=== PATIENT | female | born 1950 | race Caucasian/White ===

== ENCOUNTER 2022-10-05 19:58 | Emergency (ER) | payer MEDICARE, OTHER ==
[~2022-10-05] VITALS: Ht 162.5 cm; Wt 85.0 kg
[~2022-10-05 19:58] MED LIST: CARDIZEM; CLON0.5T4; CYMBALTA; DILT30TA; DULO30CA49; DULO60CA59; LISI10TA25; LOSA50TA63; LOSARTAN; MELO15TA39; MELOXICAM; METF-399; METFORMIN; TIZA-186
[2022-10-05 20:21] LABS: BASOPHILS # (AUTO) 0.1 10^3/uL (0.0-0.1); BASOPHILS % (AUTO) 1 % (0-10); EOSINOPHILS # (AUTO) 0.1 10^3/uL (0.0-0.3); EOSINOPHILS % (AUTO) 1 % (0-10); HEMATOCRIT 38 % (35-52); HEMOGLOBIN 12.4 g/dL (11.5-16.0); LYMPHOCYTES # (AUTO) 4.2 10^3/uL (1.0-4.0); LYMPHOCYTES % (AUTO) 43 % (12-44); MEAN CORPUSCULAR HEMOGLOBIN 30 pg (25-34); MEAN CORPUSCULAR HGB CONC 33 g/dL (32-36); MEAN CORPUSCULAR VOLUME 91 fL (80-99); MEAN PLATELET VOLUME 9.4 fL (9.0-12.2); MONOCYTES # (AUTO) 0.7 10^3/uL (0.0-1.0); MONOCYTES % (AUTO) 7 % (0-12); NEUTROPHILS # (AUTO) 4.8 10^3/uL (1.8-7.8); NEUTROPHILS % (AUTO) 49 % (42-75); PLATELET COUNT 286 10^3/uL (130-400); WHITE BLOOD COUNT 9.8 10^3/uL (4.3-11.0)
--- NOTE | 2022-10-05 20:35 | ED General ---
General Chief Complaint: Abdominal/GI Problems Stated Complaint: HIGH BLOOD SUGER| Source of Information: Patient, EMS, Family History of Present Illness Date Seen by Provider: Oct 05, 2022 Time Seen by Provider: 19:58 Initial Comments 72-year-old female presenting by EMS from [facility]. She had not been feeling well when she went to dinner and after eating some her blood sugar was up so she had given herself some insulin. Then she started feeling sick to her stomach and told her family she had to leave. When she got outside the restaurant she threw up. She was still feeling nauseated after Zofran 4 mg IV by EMS. She reports having history of quadruple bypass, stroke, heart attack. She has poorly controlled diabetes. She states that she has had episodes like this in the past and usually was stress related. She has had some burning discomfort with urination. She denies having a headache, chest pain, abdominal pain, diarrhea, new numbness or weakness. Timing/Duration: 1 Hour Severity: Moderate Modifying Factors: worse with Movement Associated Systoms: No Chest Pain, No Cough, No Diaphoresis, No Fever/Chills, No Headaches, No Loss of Appetite; Malaise, Nausea/Vomiting; No Rash, No Seizure, No Shortness of Air, No Syncope, No Weakness Allergies and Home Medications Allergies Coded Allergies: codeine (Verified Allergy, Unknown, nausea and vomiting, 01/06/16) prednisone (Verified Allergy, Unknown, 01/06/16) Patient Home Medication List Home Medication List Reviewed: Yes Cephalexin (Cephalexin) 500 Mg Capsule, 500 MG PO TID Prescribed by: YOANNA HALLMAN on 10/05/22 4728 Clonazepam (Clonazepam) 0.5 Mg Tablet, (Reported) Entered as Reported by: WILDER FELIPE on 01/07/16118 Diltiazem HCl (Diltiazem HCl) 30 Mg Tablet, (Reported) Entered as Reported by: WILDER FELIPE on 01/07/16118 Duloxetine HCl (Duloxetine HCl) 60 Mg Capsule.dr (Reported) Entered as Reported by: WILDER FELIPE on 01/07/16118 Duloxetine HCl (Duloxetine HCl) 30 Mg Capsule.dr (Reported) Entered as Reported by: WILDER FELIPE on 01/07/16118 Lisinopril (Lisinopril) 10 Mg Tablet, (Reported) Entered as Reported by: WILDER FELIPE on 01/07/16118 Losartan Potassium (Losartan Potassium) 50 Mg Tablet, (Reported) Entered as Reported by: WILDER FELIPE on 01/07/16118 Meloxicam (Meloxicam) 15 Mg Tablet, (Reported) Entered as Reported by: WILDER FELIPE on 01/07/16118 Metformin HCl (Metformin HCl) 1,000 Mg Tablet, (Reported) Entered as Reported by: WILDER FELIPE on 01/07/16118 Tizanidine HCl (Tizanidine HCl) 4 Mg Tablet, (Reported) Entered as Reported by: WILDER FELIPE on 01/07/16118 Review of Systems Review of Systems Constitutional: No chills, No dizziness, No fever; malaise EENTM: no symptoms reported Respiratory: no symptoms reported Cardiovascular: No chest pain Gastrointestinal: see HPI, nausea, vomiting Genitourinary: dysuria Musculoskeletal: no symptoms reported Skin: no symptoms reported Psychiatric/Neurological: Anxiety; Denies Headache Past Joaedjz-Qvotsv-Fchges Hx Patient Social History Tobacco Use?: No Use of E-Cig and/or Vaping dev: No Substance use?: No Immunizations Up To Date Tetanus Booster (TDap): Unknown PED Vaccines UTD: Yes Seasonal Allergies Seasonal Allergies: Yes (COMPLAINS OF ITCHYNESS ) Past Medical History Surgery/Hospitalization HX: Poorly controlled diabetes insulin-dependent, coronary artery disease, hypertension, stroke, CABG Surgeries: Yes Gallbladder, Hysterectomy Sleep Apnea Currently Using CPAP: Yes Currently Using BIPAP: No Hypertension Reproductive Disorders: No Female Reproductive Disorders: Ovarian Cyst Sexually Transmitted Disease: No Gastroesophageal Reflux Osteoporosis, Fibromyalgia, Rheumatoid Arthritis, Back Injury Diabetes, Non-Insulin dep Loss of Vision: Denies Hearing Impairment: Denies Anxiety, Depression Adverse Reaction/Blood Tranf: No Family Medical History Patient reports no known family medical history. Physical Exam Vital Signs Vital Signs - First Documented 10/05/22 20:08 Temp 36.5 Pulse 80 Resp 20 B/P (MAP) 161/80 (107) Pulse Ox 96 O2 Delivery Room Air Capillary Refill : Height, Weight, BMI Height: 5'4.00" Weight: 182lbs. 6.5oz. [id number]; 31.3 BMI Method:Stated General Appearance: No Apparent Distress, WD/WN HEENT: Pharynx Normal Neck: Full Range of Motion, Normal Inspection, Non Tender, Supple Respiratory: Chest Non Tender, Lungs Clear, Normal Breath Sounds, No Accessory Muscle Use, No Respiratory Distress Cardiovascular: Regular Rate, Rhythm, Normal Peripheral Pulses Gastrointestinal: Normal Bowel Sounds, No Pulsatile Mass, Non Tender, Soft Rectal: Deferred Extremity: Normal Capillary Refill, Normal Inspection, No Pedal Edema Neurologic/Psychiatric: Alert, Oriented x3, No Motor/Sensory Deficits, Normal Mood/Affect, auto body repairman II-XII Norm as Tested Skin: Normal Color, Warm/Dry Progress/Results/Core Measures Suspected Sepsis SIRS Temperature: Pulse: Respiratory Rate: Laboratory Tests 10/05/22 20:12: White Blood Count 9.8 Blood Pressure / Mean: Laboratory Tests 10/05/22 20:12: Creatinine 1.10, INR Comment 1.7H, Platelet Count 286, Total Bilirubin 0.3 Results/Orders Lab Results Laboratory Tests Test 10/05/22 20:12 10/05/22 22:25 10/05/22 22:45 10/05/22 23:48 Range/Units White Blood Count 9.8 4.3-11.0 10^3/uL Red Blood Count 4.19 3.80-5.11 10^6/uL Hemoglobin 12.4 11.5-16.0 g/dL Hematocrit 38 35-52 % Mean Corpuscular Volume 91 80-99 fL Mean Corpuscular Hemoglobin 30 25-34 pg Mean Corpuscular Hemoglobin Concent 33 32-36 g/dL Red Cell Distribution Width 13.1 10.0-14.5 % Platelet Count 286 130-400 10^3/uL Mean Platelet Volume 9.4 9.0-12.2 fL Immature Granulocyte % (Auto) 0 % Neutrophils (%) (Auto) 49 42-75 % Lymphocytes (%) (Auto) 43 12-44 % Monocytes (%) (Auto) 7 0-12 % Eosinophils (%) (Auto) 1 0-10 % Basophils (%) (Auto) 1 0-10 % Neutrophils # (Auto) 4.8 1.8-7.8 10^3/uL Lymphocytes # (Auto) 4.2 H 1.0-4.0 10^3/uL Monocytes # (Auto) 0.7 0.0-1.0 10^3/uL Eosinophils # (Auto) 0.1 0.0-0.3 10^3/uL Basophils # (Auto) 0.1 0.0-0.1 10^3/uL Immature Granulocyte # (Auto) 0.0 0.0-0.1 10^3/uL Prothrombin Time 20.0 H 12.2-14.7 SEC INR Comment 1.7 H 0.8-1.4 Activated Partial Thromboplast Time 29 24-35 SEC Sodium Level 140 135-145 MMOL/L Potassium Level 4.3 3.6-5.0 MMOL/L Chloride Level 102 98-107 MMOL/L Carbon Dioxide Level 24 21-32 MMOL/L Anion Gap 14 5-14 MMOL/L Blood Urea Nitrogen 21 H 7-18 MG/DL Creatinine 1.10 0.60-1.30 MG/DL Estimat Glomerular Filtration Rate 54 BUN/Creatinine Ratio 19 Glucose Level 172 H 70-105 MG/DL Glucometer 153 H 127 H 70-110 MG/DL Calcium Level 9.2 8.5-10.1 MG/DL Corrected Calcium 9.3 8.5-10.1 MG/DL Magnesium Level 2.1 1.6-2.4 MG/DL Total Bilirubin 0.3 0.1-1.0 MG/DL Aspartate Amino Transf (AST/SGOT) 29 5-34 U/L Alanine Aminotransferase (ALT/SGPT) 22 0-55 U/L Alkaline Phosphatase 136 40-136 U/L Troponin I < 0.30 < 0.30 <0.30 NG/ML Pro-B-Type Natriuretic Peptide 396.5 H <125.0 PG/ML Total Protein 7.2 6.4-8.2 GM/DL Albumin 3.9 3.2-4.5 GM/DL Lipase 38 8-78 U/L Urine Color YELLOW Urine Clarity CLOUDY Urine pH 6.0 5-9 Urine Specific [place] 1.020 1.016-1.022 Urine Protein NEGATIVE NEGATIVE Urine Glucose (UA) NEGATIVE NEGATIVE Urine Ketones NEGATIVE NEGATIVE Urine Nitrite NEGATIVE NEGATIVE Urine Bilirubin NEGATIVE NEGATIVE Urine Urobilinogen 1.0 < = 1.0 MG/DL Urine Leukocyte Esterase 1+ H NEGATIVE Urine RBC (Auto) NEGATIVE NEGATIVE Urine RBC NONE /HPF Urine WBC >100 H /HPF Urine Squamous Epithelial Cells 25-50 H /HPF Urine Crystals NONE /LPF Urine Bacteria MODERATE H /HPF Urine Casts NONE /LPF Urine Mucus NEGATIVE /LPF Urine Culture Indicated NO My Orders Orders - YOANNA HALLMAN MD Cbc With Automated Diff (10/05/22 20:17) Magnesium (10/05/22 20:17) Chest 1 View Ap/Pa Only (10/05/22 20:17) Ekg Tracing (10/05/22 20:17) Comprehensive Metabolic Panel (10/05/22 20:17) Protime With Inr (10/05/22 20:17) Partial Thromboplastin Time (10/05/22 20:17) O2 (10/05/22 20:17) Monitor-Rhythm Ecg Trace Only (10/05/22 20:17) Ed Iv/Invasive Line Start (10/05/22 20:17) Lipase (10/05/22 20:17) Troponin I Fs (10/05/22 20:17) Probnp Fs (10/05/22 20:17) Ct Head Wo (10/05/22 20:17) Ua Culture If Indicated (10/05/22 21:01) Ns Iv 1000 Ml (Sodium Chloride 0.9%) (10/05/22 21:01) Ondansetron Injection (Zofran Injectio (10/05/22 21:01) Troponin I Fs (10/05/22 22:02) Urine Culture (10/05/22 23:06) Accucheck Stat ONCE (10/05/22 23:42) Ceftriaxone Iv/Im (Ceftriaxone Iv/Im) (10/05/22 23:42) Vital Signs/I&O 10/05/22 20:08 Temp 36.5 Pulse 80 Resp 20 B/P (MAP) 161/80 (107) Pulse Ox 96 O2 Delivery Room Air Capillary Refill : Progress Note #1: Progress Note Potential diagnosis of diabetic reaction, hypertensive urgency, acute coronary syndrome, electrolyte imbalance, UTI, pancreatitis. Peripheral IV access initiated by EMS. Send labs for complete blood count, comprehensive metabolic profile, lipase, urinalysis, troponin, magnesium, proBNP. CT scan of the head to evaluate for any acute process to contribute to her symptoms. 1 view chest x-ray looking for pathology in her chest causing her symptoms. Placed on cardiac director of [facility] and initially my interpretation it shows sinus rhythm with a heart rate in the 60s. Obtain electrocardiogram to look for signs of ischemia or arrhythmia. Administer normal saline 1 L IV fluid bolus. Accu-Chek was 153 on arrival to the ED. She was given 4 mg of Zofran by EMS with was still feeling nauseated so we will order a repeat dose of that as well. Progress Note #2: Time: 20:[address] scan of the head without IV contrast shows no acute process. The 1 view chest x-ray also had no acute process. Her labs showed her white blood cell count was not elevated at 9.8. Hemoglobin was low normal at 12.4. Her comprehensive metabolic profile did not show any acute electrolyte abnormality but she did have a sugar of 172. Lipase was normal at 38 to go against pancreatitis. Initial troponin was less than 0.3. Her proBNP was 397. Magnesium was normal at 2.1. Her coagulation factors showed she had some mild elevation of the pro time to 20 and INR of 1.7 with a PTT normal at 29. Awaiting urinalysis and will plan on getting a second troponin to ensure it is not changing. Her symptoms may be related back to her newly starting a sliding scale insulin to help try and get better control of her sugars. She had eaten a pulled pork sandwich at 3 PM and then was going to eat again this evening. She did not take any insulin when she had the sandwich this afternoon. Progress Note #3: Progress Note Repeat troponin is still less than 0.3. She was finally able to provide a urine specimen and it showed bacteria with white blood cells. A culture was ordered as well. We will give a dose of ceftriaxone on a Rocephin 1 g IV here in the ED and continue cephalexin by mouth. Her INR was slightly subtherapeutic at 1.7. She states that they want her 2-3. The antibiotic will likely help to increase this some but she needs to have her labs rechecked with the clinic this week. Increase her fluid intake and watch her diet. With the new sliding scale to help get better control of her sugars her body will be symptomatically hypoglycemic until he gets used to the more "normal" blood sugars. ECG Initial ECG Impression Date: Oct 05, 2022 Initial ECG Impression Time: 20:21 Initial ECG Rate: 68 Initial ECG Rhythm: Normal Sinus Initial ECG Comparisson: Unchanged (similar to tracing from 06 Jan 2016) Comment On my initial interpretation and review her electrocardiogram shows sinus rhythm with a heart rate of 68 bpm. CA interval [address] elevation. QT interval 399 ms with a QTc interval 416 ms. Overall appears similar to prior tracing from 06 January 2016. Diagnostic Imaging Diagonstic Imaging: Xray Plain Films/CT/US/NM/MRI: chest Comments [facility] [place], [place] NAME: DILLAN MOREAU [facility] REC#: [id number] PT STATUS: REG ER : 1950 PHYSICIAN: YOANNA HALLMAN MD ADMIT DATE: 10/05/22/ER FS Signed Date of Exam:10/05/22 CHEST 1 VIEW AP/PA ONLY EXAMINATION: Chest 1 view. HISTORY: Nausea, near syncope, short of breath. COMPARISON: 01/06/2016. FINDINGS: Heart size and pulmonary vasculature are normal. The lungs are clear without consolidation, pleural effusion or pneumothorax. Degenerative changes of the thoracic spine. Osseous structures are otherwise intact. Surgical changes from median sternotomy. IMPRESSION: No acute radiographic abnormality in the chest. Dictated by: Dictated on workstation # [id number] Dict: 10/05/222046 Trans: 10/05/222050 [facility] [id number] Interpreted by: PRESLEY JAMES DO Electronically signed by: PRESLEY JAMES DO 10/05/222050 Reviewed: Reviewed by Wi Diagonstic Imaging: CT Plain Films/CT/US/NM/MRI: head Comments NAME: DILLAN MOREAU [facility] REC#: [id number] PT STATUS: REG ER : 1950 PHYSICIAN: YOANNA HALLMAN MD ADMIT DATE: 10/05/22/ER FS Draft Date of Exam:10/05/22 CT HEAD WO EXAMINATION: CT head without contrast. TECHNIQUE: Multiple contiguous axial images were obtained through the brain without the use of intravenous contrast. All CT scans use one or more of the following dose optimizing techniques: automated exposure control, MA and/or KvP adjustment based on patient size and exam type or iterative reconstruction. HISTORY: Near syncope, nausea. COMPARISON: 01/06/2016. FINDINGS: Mild diffuse cerebral volume loss with proportional enlargement of the ventricles and sulci. Moderate hypodensities throughout the supratentorial white matter posterior hemispheres. No acute intracranial hemorrhage or abnormal extra-axial fluid collection is present. Calcification of the intracranial ICAs. No hyperdense vessel. The calvarium is intact. The mastoid air cells are clear. The visualized paranasal sinuses are clear. The orbits are normal. IMPRESSION: 1. No acute intracranial abnormality. 2. Chronic microangiopathy and volume loss. Dictated on workstation # [id number] Dict: 10/05/222045 Trans: 10/05/222054 [id number] Interpreted by: PRESLEY JAMES DO Electronically signed by: Reviewed: Reviewed by Me Departure Impression Primary Impression: Acute cystitis without hematuria Additional Impression: Nausea and vomiting Qualified Codes: R11.14 - Bilious vomiting Disposition: HOME, SELF-CARE Condition: Stable Departure-Patient Inst. Decision time for Depature: 23:46 Referrals: MATTHIAS CORTES DO (PCP) Primary Care Physician Patient Instructions: Urinary Tract Infection, Adult ED, Nausea and Vomiting, Adult ED Add. Discharge Instructions: Try to stay well-hydrated and drink plenty of fluids. Some of your symptoms may be from your body trying to adjust to the blood sugars being lower. Follow-up with your primary care provider for continued concerns. Have your INR rechecked this upcoming week as the antibiotics can cause your INR to get elevated. Tonight it is at 1.7 Take the full course of antibiotics to treat for UTI. All discharge instructions reviewed with patient and/or family. Voiced understanding. Scripts Cephalexin (Cephalexin) 500 Mg Capsule 500 MG PO TID for UTI for 5 Days, #15 CAP 0 Refills Prov: YOANNA HALLMAN MD 10/05/22 YOANNA HALLMAN MD Oct 05, 2022 20:35
[2022-10-05 20:38] LABS: CHLORIDE 102 MMOL/L (98-107); INR 1.7 (0.8-1.4); POTASSIUM 4.3 MMOL/L (3.6-5.0); SODIUM 140 MMOL/L (135-145)
[2022-10-05 20:39] LABS: ALANINE AMINOTRANSFERASE 22 U/L (0-55); ALBUMIN 3.9 GM/DL (3.2-4.5); ALKALINE PHOSPHATASE 136 U/L (40-136); BILIRUBIN,TOTAL 0.3 MG/DL (0.1-1.0); BUN/CREATININE RATIO 19; CALCIUM 9.2 MG/DL (8.5-10.1); CARBON DIOXIDE 24 MMOL/L (21-32); GFR ESTIMATED 54; GLUCOSE 172 MG/DL (70-105); LIPASE 38 U/L (8-78); MAGNESIUM 2.1 MG/DL (1.6-2.4); TOTAL PROTEIN 7.2 GM/DL (6.4-8.2)
--- NOTE | 2022-10-05 20:49 | Diagnostic Imaging Report ---
EXAMINATION: Chest 1 view. HISTORY: Nausea, near syncope, short of breath. COMPARISON: 01/06/2016. FINDINGS: Heart size and pulmonary vasculature are normal. The lungs are clear without consolidation, pleural effusion or pneumothorax. Degenerative changes of the thoracic spine. Osseous structures are otherwise intact. Surgical changes from median sternotomy. IMPRESSION: No acute radiographic abnormality in the chest. Dictated by: Dictated on workstation # [id number]
--- NOTE | 2022-10-05 20:56 | Diagnostic Imaging Report ---
EXAMINATION: CT head without contrast. TECHNIQUE: Multiple contiguous axial images were obtained through the brain without the use of intravenous contrast. All CT scans use one or more of the following dose optimizing techniques: automated exposure control, MA and/or KvP adjustment based on patient size and exam type or iterative reconstruction. HISTORY: Near syncope, nausea. COMPARISON: 01/06/2016. FINDINGS: Mild diffuse cerebral volume loss with proportional enlargement of the ventricles and sulci. Moderate hypodensities throughout the supratentorial white matter posterior hemispheres. No acute intracranial hemorrhage or abnormal extra-axial fluid collection is present. Calcification of the intracranial ICAs. No hyperdense vessel. The calvarium is intact. The mastoid air cells are clear. The visualized paranasal sinuses are clear. The orbits are normal. IMPRESSION: 1. No acute intracranial abnormality. 2. Chronic microangiopathy and volume loss. Dictated by: Dictated on workstation # [id number]
[2022-10-05] MEDS ORDERED: NS IV 1000 ML 1,000 ML IV STA (21:01)
[2022-10-05] MEDS ORDERED: ONDANSETRON 4 MG/2 ML (SDV) Z0FRAN IVP STA (21:01)
[2022-10-05 22:54] LABS: BILIRUBIN,URINE NEGATIVE (NEGATIVE); COLOR,URINE YELLOW; GLUCOSE, URINE (UA) NEGATIVE (NEGATIVE); KETONES,URINE NEGATIVE (NEGATIVE); LEUKOCYTE ESTERASE ,URINE 1+ (NEGATIVE); NITRITE,URINE NEGATIVE (NEGATIVE); PROTEIN,URINE NEGATIVE (NEGATIVE)
[2022-10-05 22:59] LABS: BACTERIA,URINE MODERATE /HPF; CLARITY,URINE CLOUDY; SQUAMOUS EPITHELIAL CELL,UR 25-50 /HPF; WBC,URINE >100 /HPF
[2022-10-05] MEDS ORDERED: cefTRIAXone IV/IM 1,000 MG in NS (IVPB) 50 ML 50 ML IV STA (23:42)
[2022-10-05] MEDS ORDERED: CEPH500C PO (23:48)
[2022-10-06 00:15] VITALS: BP 144/70
[2022-10-06] MEDS ORDERED: MTP25TSR (01:16)
[2022-10-06] MEDS ORDERED: POTA-185 (01:16)
[2022-10-06] MEDS ORDERED: INSU100I32 (01:16)
[2022-10-06] MEDS ORDERED: WARF-48 (01:16)
[2022-10-06] MEDS ORDERED: INSU100I14 (01:16)
[2022-10-06] MEDS ORDERED: FURO40TA4 (01:16)
[2022-10-06] MEDS ORDERED: FLUO40CA (01:16)
[2022-10-06] MEDS ORDERED: ATOR40TA70 (01:16)
== END 2022-10-06 00:15 | disposition home or self-care (01) ==
LOC: EDUNIT# 19:58 → ER FS 20:06
DX: R11.2 Nausea with vomiting, unspecified (principal); N30.00 Acute cystitis without hematuria; E11.9 Type 2 diabetes mellitus without complications; G47.30 Sleep apnea, unspecified; Z79.4 Long term (current) use of insulin; Z99.89 Dependence on other enabling machines and devices
CPT/HCPCS: 36415; 70450; 71045; 80053; 81000; 82947; 83690; 83735; 83880; 84484; 85025; 85610; 85730; 87088; 93005; 93041; 96361; 96365; 96375